=== PATIENT | male | born 1940 | race Caucasian/White ===

== ENCOUNTER 2016-08-22 07:50 | Inpatient (IN) | payer MEDICARE, BC ==
[2016-08-22] MEDS ORDERED: Magnesium Hydroxide LIQ* 30 ML UDC PO PRN (09:08)
[2016-08-22] MEDS ORDERED: Acetaminophen TAB* 325 MG PO PRN (09:08)
[2016-08-22 09:49] LABS: Hematocrit 46 % (42-52); Hemoglobin 15.5 g/dl (14.0-18.0); Mean Corpuscular HGB Conc 34 g/dl (31-36); Mean Corpuscular Hemoglobin 30 pg (27-31); Mean Corpuscular Volume 89 fL (80-94); Mean Platelet Volume 10 um3 (7.4-10.4); Red Blood Count 5.21 10^6/ul (4.0-5.4); Red Cell Distribution Width 15 % (10.5-15)
[2016-08-22] MEDS: Sotalol TAB* 80 MG PO SCH ×2 (09:54→23:15)
[2016-08-22 10:04] LABS: BUN/Creatinine Ratio 27.7 (8-20); Calcium 9.6 mg/dL (8.6-10.3); EGFR Non-African American 59.1 (>60); Potassium 4.2 mmol/L (3.5-5.0)
[2016-08-22] MEDS ORDERED: Torsemide TAB* 20 MG PO SCH (15:00)
[2016-08-22] MEDS: Cyanocobalamin TAB* 500 MCG PO SCH (23:15)
[2016-08-22] MEDS: Zolpidem TAB* 5 MG PO SCH (23:18)
[2016-08-22] MEDS: Polyethylene Glycol 3350* 17 GM PACKET PO SCH (23:20)
[2016-08-23] MEDS ORDERED: Metoprolol Succinate XL TAB* 25 MG PO SCH (09:00)
[2016-08-23] MEDS: amLODIPine TAB* 5 MG PO SCH (09:49)
[2016-08-23] MEDS: Atorvastatin* 10 MG TAB PO SCH (09:51)
[2016-08-23] MEDS: Cyanocobalamin TAB* 500 MCG PO SCH ×2 (09:51→21:07)
[2016-08-23] MEDS: Aspirin Low Dose CHEW TAB* 81 MG PO SCH (09:51)
[2016-08-23] MEDS: Magnesium Oxide TAB* 400 MG PO SCH (09:52)
[2016-08-23] MEDS: Potassium Chlor TAB* 20 MEQ TAB.ER PO SCH (09:54)
[2016-08-23] MEDS: Sotalol TAB* 80 MG PO SCH ×2 (09:54→21:07)
[2016-08-23 10:30] LABS: BUN/Creatinine Ratio 25.2 (8-20); Calcium 9.7 mg/dL (8.6-10.3); EGFR African American 79.1 (>60); EGFR Non-African American 61.5 (>60); Potassium 4.2 mmol/L (3.5-5.0)
[2016-08-23] MEDS: Polyethylene Glycol 3350* 17 GM PACKET PO SCH ×2 (12:47→21:41)
[2016-08-23] MEDS: Zolpidem TAB* 5 MG PO SCH (21:06)
[2016-08-24] MEDS: Potassium Chlor TAB* 20 MEQ TAB.ER PO SCH (09:32)
[2016-08-24] MEDS: amLODIPine TAB* 5 MG PO SCH (09:32)
[2016-08-24] MEDS: Aspirin Low Dose CHEW TAB* 81 MG PO SCH (09:34)
[2016-08-24] MEDS: Atorvastatin* 10 MG TAB PO SCH (09:34)
[2016-08-24] MEDS: Sotalol TAB* 80 MG PO SCH (09:35)
[2016-08-24] MEDS: Cyanocobalamin TAB* 500 MCG PO SCH (09:35)
[2016-08-24] MEDS: Magnesium Oxide TAB* 400 MG PO SCH (09:36)
[2016-08-24] MEDS: Polyethylene Glycol 3350* 17 GM PACKET PO SCH (11:36)
[2016-08-24 11:54] VITALS: BP 110/63
[2016-08-24 13:37] LABS: BUN/Creatinine Ratio 26.1 (8-20); Calcium 9.6 mg/dL (8.6-10.3); EGFR African American 79.1 (>60); EGFR Non-African American 61.5 (>60); Potassium 4.2 mmol/L (3.5-5.0)
--- NOTE | 2016-08-25 13:15 | DS ---
CC: Dr. Chau; Dr. Martino; Dr. Delgado; KRISTIN Land DISCHARGE SUMMARY: DATE OF ADMISSION: 08/22/16 DATE OF DISCHARGE: 08/24/16 Please refer to a full history and physical note from physician assistant attorney general, Tameka Subramanian on 08/15/16. DISCHARGE DIAGNOSES: 1. 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 2. Atrial flutter. 3. Status post permanent pacemaker implantation. 4. Systemic arterial hypertension. DISCHARGE MEDICATIONS: 1. Norvasc 2.5 mg daily. 2. Aspirin 81 mg daily. 3. Lipitor 10 mg daily. 4. Vitamin B12 1000 mcg p.o. b.i.d. 5. Magnesium oxide 500 mg daily. 6. Potassium 200 mEq daily. 7. Sotalol 40 mg b.i.d. twice a day. LABS ON DISCHARGE DAY: On August 24, sodium 136, potassium 4.2, chloride 102, BUN 30, patient's B UN was 33 on admission August 22, creatinine 1.15, it was 1.19 on August 22, glucose 99, calcium 9.6, magnesium 2.0. EKG on the day of discharge showed paced atrial ventricular rhythm, stable PVCs compared to EKG from August 23 and stable QTc is 503 milliseconds compared to EKG from the , it is stable with a QTc of 481. PVCs are stable as well. SUMMARY: The patient is a pleasant 76-year-old male patient with known history of frequent PVCs, hi gh burden, apparently not suppressed by beta sohail treatment and was hospitalized for further sota lol initiation treatment and monitoring. The patient does have history of permanent pacemaker impla ntation on June 2016, followed up interrogation on 07/28/16 showed no further atrial flutter, bu t significant amount of PVCs. He had some shortness of breath at rest and walking. 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 He does have so me palpitations, but no chest pain. He was hospitalized on August 22. Sotalol was started at 4 0 mg twice a day, daily EKGs and chemistry and followed very closely his PVCs and his QTc interval. After 3 days of monitoring and he is stable to be discharged home on the above listed medications. He does need a followup visit with Dr. Chau or Tameka Subramanian, physician assistant attorney general within 1 week. At the time of discharge, we are going to schedule that. It is very important to continue his potassi um and magnesium and to keep his potassium at least 4.0 and magnesium at least 2.0 and keep a close on his renal function to maintain a relatively close to normal BUN and creatinine. I explained all of this to the patient. It is also important for him to avoid drinking alcohol, caffeinated drinks and stimulants. We talked about this today and stay well hydrated. PHYSICAL EXAMINATION: On exam today, he is awake, alert, and oriented. He is not in acute distress . His vitals with a blood pressure of 110/63. He is afebrile, temperature 98.5, pulse 70, respirat ory rate 18. Head and Neck Exam: Normocephalic, atraumatic. Ears, Nose and throat: Essentially be nign. Neck: Supple. JVP is not elevated. No carotid bruits. No masses in the neck is appreciated . Chest is clear to auscultation. No rales, no wheeze. No added sounds appreciated. Heart: Norm al S1, S2. No added sounds. No gallops or rubs. Abdomen: Obese, soft. Positive bowel sounds. Ex tremities: No edema, no cyanosis, no clubbing. The skin exam is normal. Psych: Normal affect and mood. MOLDING SANDER: No focal deficits appreciated. PLAN: The patient is stable to be discharged home today with above instructions as listed. I should say more than half of at least 30 plus minute was [id number] in the education and domestic violence counselor ing with explaining the above to the patient and his who was bedside and answering all of their concerns and questions up to their satisfaction. [id number]/[facility] #: [id number]
== END 2016-08-24 15:38 | disposition home or self-care (01) | DRG 309 ==
LOC: MEDTELE 08:50
PROVIDERS: ADMIT Specialist; ATTEND Internal Medicine Cardiovascular Disease
DX: I49.3 Ventricular premature depolarization (principal); I48.92 Unspecified atrial flutter; I27.2 Other secondary pulmonary hypertension; I71.2 Thoracic aortic aneurysm, without rupture; G62.9 Polyneuropathy, unspecified; I48.91 Unspecified atrial fibrillation; J44.9 Chronic obstructive pulmonary disease, unspecified; I10 Essential (primary) hypertension; I08.3 Combined rheumatic disorders of mitral, aortic and tricuspid valves; G47.33 Obstructive sleep apnea (adult) (pediatric); E66.9 Obesity, unspecified; E78.00 Pure hypercholesterolemia, unspecified; H91.90 Unspecified hearing loss, unspecified ear; E07.9 Disorder of thyroid, unspecified; I44.0 Atrioventricular block, first degree; Z79.82 Long term (current) use of aspirin; Z95.0 Presence of cardiac pacemaker; Z88.1 Allergy status to other antibiotic agents; Z68.33 Body mass index [BMI] 33.0-33.9, adult; Z82.49 Family history of ischemic heart disease and other diseases of the circulatory system; Z82.3 Family history of stroke; Z87.891 Personal history of nicotine dependence
CPT/HCPCS: 36415; 80048; 83735; 85025; 93005; A9270-GY

== ENCOUNTER 2016-10-31 06:32 | Day surgery (SDC) | payer MEDICARE, BC ==
[~2016-10-31 06:32] MED LIST: Acetaminophen TAB* 325 MG PO PRN; Buffered Lidocaine 1% SYRIN* 3 ML/SYR SYRINGE INTRADERM ONE
[2016-10-31] MEDS ORDERED: Midazolam* 1 MG/ML 2 ML VIAL (2 MG) ONE (07:28)
[2016-10-31] MEDS ORDERED: fentaNYL* 50 MCG/ML 2 ML VIAL (100 MCG VIAL) ONE (07:28)
[2016-10-31] MEDS ORDERED: Povidone Iodine 5% OPTH* 30 ML BTL ONE (07:49)
[2016-10-31] MEDS ORDERED: Cyclopentolate 1% OPTH.SOL* 2 ML BTL ONE (07:49)
[2016-10-31] MEDS ORDERED: Neomycin/Polymy/Dex OPHTH.OIN* 3.5 GM ONE (07:49)
[2016-10-31] MEDS ORDERED: Flurbiprofen 0.03% OPTH.SOL* 2.5 ML BTL ONE (07:49)
[2016-10-31] MEDS ORDERED: acetaZOLAMIDE TAB* 250 MG ONE (07:49)
[2016-10-31] MEDS ORDERED: Tropicamide 1% OPTH.SOL* BTL ONE (07:49)
[2016-10-31] MEDS ORDERED: Phenylephrine 2.5% OPTH.SOL* 2 ML BTL ONE (07:49)
[2016-10-31] MEDS ORDERED: Lidocaine 1% MPF* 2 ML VIAL ONE (07:49)
[2016-10-31] MEDS ORDERED: Tetracaine 0.5% OPTH.SOL 4 ML* 1 DROP BTL ONE (07:49)
[2016-10-31 08:33] VITALS: BP 122/76
--- NOTE | 2016-11-01 04:46 | OP ---
DATE OF OPERATION: 10/31/16 - [facility] DATE OF : 36 SURGEON: Randall Olvera MD ANESTHESIOLOGIST: Luca Carter DO ANESTHESIA: Monitored anesthesia care. PRE-OP DIAGNOSIS: Cataract to the left eye. POST-OP DIAGNOSIS: Cataract to the left eye. OPERATIVE PROCEDURE: Cataract extraction, left eye. IMPLANTS: SN60WF 23.0 diopter lens to left eye. COMPLICATIONS: None. DESCRIPTION OF PROCEDURE: The patient was given phenylephrine 2.5% and cyclopentolate 1% eye drops to the operative eye in the preoperative area. The patient was brought to the operating room where a time-out was taken to identify the correct patient, site, and side of surgery. The patient's left eye was prepped and draped in usual sterile fashion with 5% Betadine. A second time-out was taken to verify the correct patient, site, and side of surgery and correct lens selection. A lid speculum was placed to the left eye. A 1-mm paracentesis blade was used to make a clear corneal incision in the inferior orthodoxy position. Preservative-free 1% lidocaine was injected in the anterior chamber. DisCoVisc was then injected in the anterior chamber. A 2.75 mm keratome blade was used to make a triplanar incision at the superior temporal position. A cystotome was used to initiate a capsulorrhexis, which was completed with Utrata forceps in a continuous and curvilinear manner. Hydrodissection of the lens was then performed with BSS on a cannula. The lens could be spun in the capsular bag. Phacoemulsification handpiece was then used with a [id number]-hjg-[id number] technique to remove the nucleus in its entirety. The I/A handpiece was then used to remove the residual cortical lens material. DisCoVisc was then injected to inflate the capture bag. The planned SN60WF 23.0 diopter lens was then injected into the capsular bag. The residual DisCoVisc was then removed from the eye with the I/A handpiece. The corneal incisions were then hydrated and no leaks occurred at physiologic pressure around 20 mmHg per palpation. The lid speculum was then removed and drapes removed. Maxitrol ointment was then placed on the surface of the operative eye. An adhesive patch and shield were then placed on the operative eye. The patient was taken to the postoperative area in stable condition. [id number]/[facility] #: [id number] MTDD
== END 2016-10-31 08:50 | disposition home or self-care (01) ==
LOC: OREAST 06:32
PROVIDERS: ATTEND Student in an Organized Health Care Education/Training Program
DX: H25.12 Age-related nuclear cataract, left eye (principal); H04.123 Dry eye syndrome of bilateral lacrimal glands; Z87.891 Personal history of nicotine dependence; I10 Essential (primary) hypertension; E78.00 Pure hypercholesterolemia, unspecified; J44.9 Chronic obstructive pulmonary disease, unspecified; I48.91 Unspecified atrial fibrillation; Z95.0 Presence of cardiac pacemaker
CPT/HCPCS: A9270-GY; J2250; J3010; V2632

== ENCOUNTER 2016-11-07 11:38 | Day surgery (SDC) | payer MEDICARE, BC ==
[2016-11-07] MEDS ORDERED: fentaNYL* 50 MCG/ML 2 ML VIAL (100 MCG VIAL) ONE (13:12)
[2016-11-07] MEDS ORDERED: Midazolam* 1 MG/ML 2 ML VIAL (2 MG) ONE (13:13)
[2016-11-07] MEDS ORDERED: acetaZOLAMIDE TAB* 250 MG ONE (14:50)
[2016-11-07] MEDS ORDERED: Phenylephrine 2.5% OPTH.SOL* 2 ML BTL ONE (14:50)
[2016-11-07] MEDS ORDERED: Povidone Iodine 5% OPTH* 30 ML BTL ONE (14:50)
[2016-11-07] MEDS ORDERED: Lidocaine 1% MPF* 2 ML VIAL ONE (14:50)
[2016-11-07] MEDS ORDERED: Tropicamide 1% OPTH.SOL* BTL ONE (14:50)
[2016-11-07] MEDS ORDERED: Cyclopentolate 1% OPTH.SOL* 2 ML BTL ONE (14:50)
[2016-11-07] MEDS ORDERED: Neomycin/Polymy/Dex OPHTH.OIN* 3.5 GM ONE (14:50)
[2016-11-07] MEDS ORDERED: Tetracaine 0.5% OPTH.SOL 4 ML* 1 DROP BTL ONE (14:50)
[2016-11-07] MEDS ORDERED: Flurbiprofen 0.03% OPTH.SOL* 2.5 ML BTL ONE (14:50)
[2016-11-07 15:23] VITALS: BP 136/74
--- NOTE | 2016-11-08 10:42 | OP ---
DATE OF OPERATION: 11/07/16 - [facility] DATE OF : 36 SURGEON: Randall Olvera MD ANESTHESIOLOGIST: Dr. Trent ANESTHESIA: Monitored anesthesia care. PRE-OP DIAGNOSIS: Cataract, right eye. POST-OP DIAGNOSIS: Cataract, right eye. OPERATIVE PROCEDURE: Cataract extraction of the right eye. IMPLANTS: SN60WF 25.0 diopter lens to the right eye. COMPLICATIONS: None. DESCRIPTION OF PROCEDURE: The patient was given phenylephrine 2.5% and cyclopentolate 1% eye drops to the operative eye in the preoperative area. The patient was brought to the operating room where a time-out was taken to identify the correct patient, site, and side of surgery. The patient's right eye was prepped and draped in the usual sterile fashion with 5% Betadine. A second time- out was taken to verify the correct patient, site, and side of surgery and correct lens selection. A lid speculum was placed to the right eye. A 1-mm paracentesis blade was used to make a clear corneal incision in the superotemporal position. Preservative-free 1% lidocaine was injected into the anterior chamber. DisCoVisc was then injected into the anterior chamber. A 2.75-mm keratome blade was used to make a triplanar incision at the inferotemporal position. A cystotome was used to initiate a capsulorrhexis, which was completed with Utrata forceps in a continuous and curvilinear manner. Hydrodissection of the lens was then performed with BSS on a cannula. The lens could be spun in the capsular bag. The phacoemulsification handpiece was then used with a gqzocg-[id number]-ozmkrih technique to remove the nucleus in its entirety with 25.55 CDE. The I/A handpiece was then used to remove the residual cortical lens material. DisCoVisc was then injected to inflate the capsular bag. The planned SN60WF 25.0 diopter lens was then injected in the capsular bag. The residual DisCoVisc was then removed from the eye with the I/ A handpiece. The corneal incisions were hydrated and no leaks occurred at physiologic pressure around 20 mmHg per palpation. The lid speculum was removed and drapes removed. Maxitrol ointment was then placed on the surface of the operative eye. An adhesive patch and shield was placed on the operative eye. The patient was taken to the postoperative area in stable condition. [id number]/[facility] #: [id number] GABE
== END 2016-11-07 13:58 | disposition home or self-care (01) ==
LOC: OREAST 11:38
PROVIDERS: ATTEND Student in an Organized Health Care Education/Training Program
DX: H25.11 Age-related nuclear cataract, right eye (principal); H04.123 Dry eye syndrome of bilateral lacrimal glands; Z87.891 Personal history of nicotine dependence; I10 Essential (primary) hypertension; I49.5 Sick sinus syndrome; G47.33 Obstructive sleep apnea (adult) (pediatric); R05 Cough
CPT/HCPCS: A9270-GY; J2250; J3010; V2632

== ENCOUNTER 2024-03-27 05:59 | Observation (INO) ==
[~2024-03-27 05:59] MED LIST changes: -Acetaminophen TAB* 325 MG PO PRN; -Buffered Lidocaine 1% SYRIN* 3 ML/SYR SYRINGE INTRADERM ONE; +Metoclopramide 5 MG/ML VIAL (10 mg) IV PRN; +NS 0.45% 1000 ml BAG 1,000 ML IV SCH; +Naloxone 0.4 mg VIAL 0.4 mg/ml 1 ml VIAL IV PRN; +Ondansetron 4 mg VIAL 2 MG/ML 2 ml VIAL IV PRN; +fentaNYL 100 mcg/2 ml 50 MCG/ML VIAL IV PRN
[2024-03-27] MEDS ORDERED: Famotidine IV 10 MG/ML 2 ml VIAL (20 mg) ONE (06:22)
[2024-03-27 06:43] LABS: Rapid COVID-19 Molecular Undetected (Undetected)
[2024-03-27] MEDS ORDERED: Lidocaine 1% VIAL 10 MG/ML 30 ML VIAL ONE (06:51)
[2024-03-27] MEDS: Famotidine IV 10 MG/ML 2 ml VIAL (20 mg) IV SLOW PU ONE (07:03)
[2024-03-27] MEDS ORDERED: Ondansetron 4 mg VIAL 2 MG/ML 2 ml VIAL ONE (07:07)
[2024-03-27] MEDS ORDERED: Dexamethasone IV 4 MG/ML VIAL 1 ml VIAL ONE (07:07)
[2024-03-27] MEDS ORDERED: Propofol 10 MG/ML 20 ML BTL ONE (07:07)
[2024-03-27] MEDS ORDERED: Rocuronium 50 mg VIAL 10 mg/ml 5 ml VIAL (50 mg) ONE (07:08)
[2024-03-27 07:14] LABS: INR 1.21 (0.85-1.14)
[2024-03-27] MEDS ORDERED: Midazolam 2 mg/2 ml VIAL 1 mg/ml 2 ml VIAL (2 mg) ONE (07:25)
[2024-03-27] MEDS ORDERED: Phenylephrine 40 mcg/mL 10mL (400mcg) SYRINGE ONE (07:44)
[2024-03-27] MEDS ORDERED: Furosemide 20 mg/2 ml IV VIAL ONE (08:29)
[2024-03-27] MEDS: Buffered Lidocaine 1% SYRIN 1 ml INTRADERM ONE (11:53)
[2024-03-27] MEDS: Acetaminophen IV 1 GM/100ML 1,000 MG/100 ML BAG IV ONE (11:53)
[2024-03-27] MEDS: Lactated Ringers 1000 ml BAG 1,000 ML IV SCH ×2 (11:54→11:55)
[2024-03-27] MEDS: Scopolamine 1 mg/72hr PATCH TRANSDERM ONE (11:54)
[2024-03-27] MEDS: Gentamicin ADULT 140 MG in NS 0.9% 100 ml BAG 100 ML IVPB ONE (12:18)
[2024-03-27] MEDS: Psyllium PAK PO SCH (21:14)
[2024-03-28 07:51] LABS: Calcium 8.2 mg/dL (8.6-10.3); Creatinine, Serum 1.05 mg/dL (0.67-1.17); Potassium 4.4 mmol/L (3.5-5.0); eGFR CKD-EPI 69.1 (>60)
[2024-03-28] MEDS: Vitamin THERAPEUTIC TAB PO SCH (08:23)
[2024-03-28] MEDS: Calcium/Vitamin D TAB 250/125 TAB PO SCH (08:23)
[2024-03-28 09:35] VITALS: BP 126/71
[2024-03-28] MEDS: Influenza Vaccine *TRI* 2024-25* 0.5 ML SYRINGE IM ONE (10:11)
== END 2024-03-28 11:56 | disposition home or self-care (01) ==
LOC: SSU 05:59 → OR 05:59
PROVIDERS: ADMIT Urology; ATTEND Urology